=== PATIENT | female | born 1930 | race Caucasian/White ===

== ENCOUNTER 2016-10-13 06:17 | Emergency (ER) | payer MEDICARE, BC ==
--- NOTE | ~2016-10-13 | ER ---
PATIENT'S NAME: IRWIN PERSON [facility] AGE: 86 Y [address] ROOM: [place] [address] LOCATION: [facility] ADMIT DATE: 10/13/2016 ER/Outpatient Report DISCHARGE DATE: 10/13/2016 FAMILY PHYSICIAN: Adam Rodriguez MD ATTENDING PHYSICIAN: Aniyah Aguirre Admission date and time documented on the medical record. I saw the patient at 0630 hours. CHIEF COMPLAINT: Fall, left hip pain. HISTORY OF PRESENT ILLNESS: The patient is an 86-year-old female, who got up got up at home at 0330 hours, slipped on the floor, landing on her left hip. She has pain in the left hip, she has a large contusion, lateral left hip. She has a stinging sensation and pain currently at around 5/10. She was ambulatory at home. EMS crew brought the patient in by ambulance from [place] for evaluation. The patient denies hitting her head or losing consciousness. No headache. Eyes, ears, nose, throat, neck, or spine pain. No recent colds, coughs, flus, fever, chills, or sweats. The patient denies lightheadedness, dizziness, syncope, or near syncope. No other trauma. No chest pain, shortness of breath. No abdominal pain, nausea, vomiting, diarrhea. No urinary frequency, urgency, or dysuria. No incontinence. No joint or muscle swelling, redness, or pain other than the left lateral hip. No skin eruptions or rash. Does have a contusion bruise to the left lateral hip. Does have a past history of subdural hematoma. No other neuro changes. Does have a history of anxiety and depression, but no psychosis. No endocrine problems. HOME MEDICATIONS: See attached medication list. ALLERGIES: LIDOCAINE AND SULFA. SOCIAL HISTORY: Nonsmoker. Occasional intake of alcohol. SIGNIFICANT PAST MEDICAL HISTORY: Atherosclerotic ischemic heart disease with coronary artery disease, status post myocardial infarction, sinus bradycardia dyslipidemia, bilateral breast cancer, hypertension, paroxysmal atrial fibrillation, anxiety, depression, subdural hematoma, reflux esophagitis, gastroesophageal reflux, colon polyps, polymyalgia rheumatica, high-risk medications. PATIENT'S NAME: IRWIN PERSON [facility] AGE: 86 Y [address] ROOM: [place], [place] [address] LOCATION: [facility] ADMIT DATE: 10/13/2016 ER/Outpatient Report DISCHARGE DATE: 10/13/2016 FAMILY PHYSICIAN: Adam Rodriguez MD ATTENDING PHYSICIAN: Aniyah Aguirre OPERATIONS: Bilateral breast lumpectomy, radiation therapy, D and C, endometrial biopsies, cholecystectomy, appendectomy, colonoscopy, tonsillectomy, cardiac catheterization with PTCA and stenting. REVIEW OF SYSTEMS: All systems reviewed by me are negative with the exception of those discussed in the history of present illness. PHYSICAL EXAMINATION: VITAL SIGNS: Pulse 56, regular, respirations 20, blood pressure 137/80, O2 saturation on room air is 99%. HEAD: Normocephalic. No abrasion, contusion, laceration, swelling of the scalp or face. EYES: Extraocular muscles intact. PERRL. EARS: Clear TMs bilaterally. NOSE AND THROAT: Clear. Mucous membranes moist. Teeth and jaw intact. NECK: No nuchal rigidity. No thyromegaly or cervical adenopathy. No tenderness. SPINE: Nontender. No deformity. LUNGS: Clear. Good air flow. No rales, rhonchi, or wheezes. HEART: Regular bradycardic. Pulses are palpable. ABDOMEN: Soft, nondistended, nontender. Good bowel tones. No organomegaly or abnormal mass palpable. CHEST: No chest wall or ribcage pain to palpation. PELVIS: Stable nontender. EXTREMITIES: Moves all 4 extremities. The patient has a large softball size contusion on left lateral hip, swelling ecchymotic. No open wounds. No peripheral edema, cyanosis, or deformity. Neurovascularly intact. SKIN: Clear. No skin eruptions or rash, other than the contusion left lateral hip. IMAGING DATA: X-ray of the pelvis showed no fracture. X-ray of the left hip showed no fracture or dislocation. We will review plain x-rays with Radiology. IMPRESSION: 1. Slip and fall with bruised left lateral hip. No evidence of fracture on x-ray studies. 2. History of atherosclerotic ischemic heart disease with coronary artery disease, status post myocardial infarction. 3. Dyslipidemia. 4. Hypertension. 5. Paroxysmal atrial fibrillation. 6. History of anxiety and depression. PATIENT'S NAME: IRWIN PERSON [facility] AGE: 86 Y [address] ROOM: [place] [address] LOCATION: [facility] ADMIT DATE: 10/13/2016 ER/Outpatient Report DISCHARGE DATE: 10/13/2016 FAMILY PHYSICIAN: Adam Rodriguez MD ATTENDING PHYSICIAN: Aniyah Aguirre 7. History of bilateral breast cancer. 8. History of gastroesophageal reflux with reflux esophagitis. 9. High-risk medications. 10. History of polymyalgia rheumatica. PLAN: The patient was dismissed home. Observation. Activity as tolerated. Continue present home medications and care. Ice to the sore area left hip intermittently as needed for 72 hours. Tylenol or ibuprofen 2 every 4-6 hours as needed for pain. Weightbearing as tolerated. Follow up with personal physician as needed. Discussion ensued with the patient concerning my findings and recommendations, she understands. ANIYAH AGUIRRE MD SDS/modl /[id number] d: 10/13/16 1358 t: 10/13/16 1722, OUTPATIENT REPORT
[~2016-10-13 06:17] MED LIST: ACETAMINOPHEN325 MG PO; ASPIRIN (CHILDR81 MG PO; ASPIRIN325 MG PO; BRILINTA90 MG PO; CALCIUM CARBON600 MG PO; DEXILANT30 MG PO; LASIX20 MG PO; LOPRESSOR12.5 MG/0. PO; LOPRESSOR25 MG PO; NITROSTAT0.6 MG SL; REGLAN5 MG PO; RYTHMOL150 M1 PO; SERAX PO; VASOTEC2.5 MG PO; VITAMIN B-121000 MCG PO; ZOCOR20 MG PO
== END 2016-10-13 08:10 | disposition disaster alternative care site (69) ==
LOC: GACC 06:17
DX: S70.02XA Contusion of left hip, initial encounter (principal); I25.10 Atherosclerotic heart disease of native coronary artery without angina pectoris; I25.2 Old myocardial infarction; E78.5 Hyperlipidemia, unspecified; I10 Essential (primary) hypertension; I48.0 Paroxysmal atrial fibrillation; F32.9 Major depressive disorder, single episode, unspecified; F41.9 Anxiety disorder, unspecified; K21.0 Gastro-esophageal reflux disease with esophagitis; Z85.3 Personal history of malignant neoplasm of breast; Z88.2 Allergy status to sulfonamides; Z88.4 Allergy status to anesthetic agent; W01.0XXA Fall on same level from slipping, tripping and stumbling without subsequent striking against object, initial encounter